=== PATIENT | female | born 1985 | race Two or more races ===

== ENCOUNTER 2020-09-23 13:24 | Emergency (ER) | payer OTHER ==
[2020-09-23 13:30] VITALS: BMI 28.6
[2020-09-23] MEDS ORDERED: ACETAMINOPHEN 1000 MG/100 ML VIAL (NON FORMULARY) IVPB ONE (13:54)
[2020-09-23] MEDS ORDERED: ACETAMINOPHEN INJECTION 100 ML IVPB ONE (14:21)
[2020-09-23 14:44] LABS: EOS % 0.9 % (0-4.5); HEMATOCRIT 40.3 % (32.4-45.2); HEMOGLOBIN 14.2 GM/dL (10.7-15.3); LYMPH % 16.1 % (8-40); MCH 32.2 pg (25.7-33.7); MCHC 35.3 g/dl (32.0-36.0); MEAN CELL VOLUME 91.3 fl (80-96); MEAN PLT VOLUME 6.7 fl (7.5-11.1); PLATELET COUNT 319 K/MM3 (134-434); RBC 4.42 M/mm3 (3.60-5.2); RDW 12.5 % (11.6-15.6); WHITE BLOOD COUNT 9.5 K/mm3 (4.0-10.0)
[2020-09-23 14:47] LABS: URINE APPEARANCE CLOUDY; URINE BILIRUBIN NEGATIVE (NEGATIVE); URINE COLOR YELLOW; URINE GLUCOSE (UA) NEGATIVE (NEGATIVE); URINE KETONE TRACE (NEGATIVE); URINE LEUK ESTERASE NEGATIVE (NEGATIVE); URINE NITRITE NEGATIVE (NEGATIVE); URINE PROTEIN TRACE (NEGATIVE)
[2020-09-23 14:50] LABS: HCG,QUALITATIVE URINE Negative
[2020-09-23 15:05] LABS: POTASSIUM 3.6 mmol/L (3.5-5.1)
[2020-09-23 15:07] LABS: CALCIUM 8.7 mg/dL (8.5-10.1)
[2020-09-23 15:08] LABS: BLOOD UREA NITROGEN 8.6 mg/dL (7-18)
[2020-09-23 15:11] LABS: CREATININE 0.6 mg/dL (0.55-1.3)
[2020-09-23 15:13] LABS: BILIRUBIN,TOTAL 0.8 mg/dL (0.2-1); TOT PROT 7.4 g/dl (6.4-8.2)
[2020-09-23 19:11] VITALS: BP 125/85; PULSE 74; TEMP 98.6
[2020-09-23] MEDS ORDERED: KETOROLAC TROMETHAMINE 30 MG/1 ML VIAL IVPUSH ONE (19:11)
[2020-09-23] MEDS ORDERED: KETOROLAC TROMETHAMINE 30 MG/1 ML VIAL ONE (19:31)
== END 2020-09-23 20:30 | disposition home or self-care (01) ==
LOC: JER 13:24
PROC: 3E0333Z Introduction of Anti-inflammatory into Peripheral Vein, Percutaneous Approach (ICD-10-PCS; principal; 2020-09-23)
PROC: 3E0333Z Introduction of Anti-inflammatory into Peripheral Vein, Percutaneous Approach (ICD-10-PCS; 2020-09-23)
DX: R10.2 Pelvic and perineal pain (principal)
CPT/HCPCS: 36415; 74018-TC-FY; 76830-TC; 76856-TC; 80053; 81003; 83690; 83735; 84703; 85025; 99285-25; J0131